=== PATIENT | male | born 1945 | race African-American/Black ===

== ENCOUNTER 2019-09-19 20:04 | Inpatient (IN) ==
[2019-09-19] MEDS ORDERED: PIPERACILLIN/TAZOBACTAM 3,375 MG in SODIUM CHLORIDE 0.9% 100 ML IV STA (20:30)
[2019-09-19] MEDS ORDERED: methylPREDNISolone SOD SUC 125 MG/2 ML VIAL IV STA (20:30)
[2019-09-19] MEDS ORDERED: ALBUTEROL NEB SOLN 5 MG/ML 20 ML/BOTTLE CONT NEB SCH (20:30)
[2019-09-19] MEDS ORDERED: ONDANSETRON 4 MG/2 ML VIAL IV STA (20:30)
[2019-09-19] MEDS ORDERED: VANCOMYCIN INJ 1,000 MG in SODIUM CHLORIDE 0.9% 250 ML IV STA (20:30)
[2019-09-19 21:38] LABS: Alanine Aminotransferase 39 U/L (16-61); Albumin 2.4 G/DL (3.4-5.0); Alkaline Phosphatase 80 U/L (45-117); Aspartate Amino Transferase 63 U/L (0-37); Bilirubin,Total < 0.39 MG/DL (0.2-1.0); Blood Urea Nitrogen 16 MG/DL (7-18); CKMB % 2.9 %; Calcium 7.6 MG/DL (8.5-10.1); Estimated Glom Filtration Rate 104 ML/MIN; Glucose 133 MG/DL (74-106); Osmolality,Calculated 277.7 MOS/KG (273-304); Total Protein 7.1 G/DL (6.4-8.3); Troponin I < 0.015 NG/ML (0.00-0.045)
[2019-09-19 21:50] LABS: Amorphous Crystals,Urine Occasional /HPF (Few); Apearance,Urine Slightly Hazy (Clear); Bacteria,Urine Occasional /HPF (Few); Bilirubin,Urine Negative (Negative); Blood, Urine Negative (Negative); Glucose,Urine (UA) Negative (Negative); Hyaline Casts,Urine 1 /LPF (0-3); Ketones,Urine Negative (Negative); Mucus,Urine Occasional /LPF (Occasional); Nitrite,Urine Negative (Negative); Protein,Urine Negative; Squamous Epithelial Cell,Urine Occasional /HPF (0-10); Urine Color Yellow (Yellow); Urine Specific Gravity 1.009 (1.001-1.035); Urine Urobilinogen < 2.0 EU/DL (0.2-1.0)
[2019-09-19] MEDS ORDERED: ACETAMINOPHEN 325 MG TABLET PO PRN (21:50)
[2019-09-19] MEDS ORDERED: ALBUTEROL 2.5 MG/3 ML NEB RESP TX PRN (21:50)
[2019-09-19] MEDS ORDERED: NICOTINE 21 MG/24 HR PATCH TRANSDERM PRN (21:50)
[2019-09-19] MEDS ORDERED: ONDANSETRON 4 MG/2 ML VIAL IV PRN (21:50)
[2019-09-19] MEDS ORDERED: DOCUSATE SODIUM 100 MG CAPSULE PO PRN (21:50)
[2019-09-19] MEDS ORDERED: diphenhydrAMINE CAP 25 MG CAPSULE PO PRN (21:50)
[2019-09-19] MEDS ORDERED: PROMETHAZINE 25 MG/1 ML VIAL IM PRN (21:50)
[2019-09-19] MEDS ORDERED: hydrALAZINE 20 MG/1 ML VIAL IV PRN (21:50)
[2019-09-19] MEDS ORDERED: ZALEPLON 5 MG CAPSULE PO PRN (21:50)
[2019-09-19 22:01] LABS: Basophils % 0.1 % (0.0-0.8); Eosinophils # 0.1 10*3/uL (0.0-0.87); Eosinophils % 1.1 % (0.00-10.9); Hematocrit 43.9 VOL% (42.0-52.0); Hemoglobin 14.1 GM/DL (14.0-18.0); Immature Granulocytes % 0.3 %; Immature Granulocytes Absolute 0.02 #; Lymphocytes # 2.9 10*3/uL (1.4-4.0); Lymphocytes % 39.6 % (21.2-54.2); Mean Corpuscular HGB Conc 32.1 GM/DL (32-36); Mean Corpuscular Volume 100.7 FL (87-102); Mean Platelet Volume 10.9 FL (9.6-12.0); Monocytes % 5.8 % (1.7-12.7); Neutrophils % 53.1 % (38.7-73.9); Platelet Count 108 T/CUMM (130-400); Red Blood Count 4.36 MC/CUMM (3.8-5.5); Red Cell Distribution Width 13.9 % (9.3-17.3); White Blood Count 7.3 T/CUMM (4-12)
[2019-09-19 22:10] LABS: INR 0.9; PT Patient Result 10.1 SECS (9.6-12.2)
[2019-09-19 23:15] LABS: Lymphocytes 45 % (20-55); Segmented Neutrophils 51 % (50-85)
[2019-09-19 23:16] LABS: Hypochromasia 1+; Platelet Estimate Normal; Reactive Lymphocytes Few
[2019-09-19 23:17] LABS: Total Cells Counted 100
[2019-09-20] MEDS: ALBUTEROL/IPRATROPIUM 3 ML NEB RESP TX SCH ×4 (01:20→19:01)
[2019-09-20] MEDS: AZITHROMYCIN INJ 500 MG in SODIUM CHLORIDE 0.9% 250 ML IV SCH (01:54)
[2019-09-20] MEDS: SODIUM CHLORIDE 0.9% 1,000 ML IV SCH ×3 (01:56→17:03)
[2019-09-20] MEDS: VANCOMYCIN INJ 1,250 MG in SODIUM CHLORIDE 0.9% 250 ML IV SCH ×2 (03:32→14:02)
[2019-09-20 06:23] LABS: Hematocrit 39.8 VOL% (42.0-52.0); Hemoglobin 13.1 GM/DL (14.0-18.0); Immature Granulocytes % 0.6 %; Immature Granulocytes Absolute 0.05 #; Lymphocytes # 1.1 10*3/uL (1.4-4.0); Lymphocytes % 13.9 % (21.2-54.2); Mean Corpuscular HGB Conc 32.9 GM/DL (32-36); Mean Corpuscular Volume 98.8 FL (87-102); Mean Platelet Volume 10.7 FL (9.6-12.0); Neutrophils % 82.5 % (38.7-73.9); Platelet Count 109 T/CUMM (130-400); Red Blood Count 4.03 MC/CUMM (3.8-5.5); White Blood Count 7.9 T/CUMM (4-12)
[2019-09-20 07:26] LABS: Albumin 2.2 G/DL (3.4-5.0); Bilirubin,Total 0.4 MG/DL (0.2-1.0); Calcium 8.2 MG/DL (8.5-10.1); Osmolality,Calculated 277.7 MOS/KG (273-304); Total Protein 7.3 G/DL (6.4-8.3)
[2019-09-20] MEDS ORDERED: carvediloL 12.5 MG TABLET PO SCH (08:00)
[2019-09-20] MEDS: FUROSEMIDE 40 MG TABLET PO SCH ×2 (08:25→20:53)
[2019-09-20] MEDS: FEXOFENADINE 60 MG TABLET PO SCH (08:25)
[2019-09-20] MEDS: levETIRAcetam 250 MG TABLET PO SCH ×2 (08:25→20:54)
[2019-09-20] MEDS: LEVOTHYROXINE 100 MCG TABLET PO SCH (08:25)
[2019-09-20] MEDS: PANTOPRAZOLE 40 MG TABLET PO SCH (08:26)
[2019-09-20] MEDS: TAMSULOSIN 0.4 MG CAPSULE PO SCH ×2 (08:26→20:53)
[2019-09-20] MEDS: POTASSIUM CHLORIDE 20 MEQ TABLET PO SCH (08:26)
[2019-09-20] MEDS: PIPERACILLIN/TAZOBACTAM 3,375 MG in SODIUM CHLORIDE 0.9% 100 ML IV SCH ×2 (08:26→16:00)
[2019-09-20] MEDS: FERROUS SULFATE 325 MG TABLET PO SCH (08:26)
[2019-09-20] MEDS ORDERED: amLODIPine 2.5 MG TABLET PO SCH (09:00)
[2019-09-20] MEDS: ATORVASTATIN 40 MG TABLET PO SCH (20:58)
[2019-09-21] MEDS: PIPERACILLIN/TAZOBACTAM 3,375 MG in SODIUM CHLORIDE 0.9% 100 ML IV SCH ×2 (00:18→08:10)
[2019-09-21] MEDS: ALBUTEROL/IPRATROPIUM 3 ML NEB RESP TX SCH ×4 (00:43→19:17)
[2019-09-21] MEDS: AZITHROMYCIN INJ 500 MG in SODIUM CHLORIDE 0.9% 250 ML IV SCH (04:26)
[2019-09-21] MEDS: VANCOMYCIN INJ 1,250 MG in SODIUM CHLORIDE 0.9% 250 ML IV SCH (05:42)
[2019-09-21] MEDS: LEVOTHYROXINE 100 MCG TABLET PO SCH (05:45)
[2019-09-21] MEDS: levETIRAcetam 250 MG TABLET PO SCH ×2 (08:10→21:43)
[2019-09-21] MEDS: POTASSIUM CHLORIDE 20 MEQ TABLET PO SCH (08:10)
[2019-09-21] MEDS: PANTOPRAZOLE 40 MG TABLET PO SCH (08:10)
[2019-09-21] MEDS: TAMSULOSIN 0.4 MG CAPSULE PO SCH ×2 (08:10→21:43)
[2019-09-21] MEDS: FEXOFENADINE 60 MG TABLET PO SCH (08:10)
[2019-09-21] MEDS: FERROUS SULFATE 325 MG TABLET PO SCH (08:10)
[2019-09-21] MEDS: FUROSEMIDE 40 MG TABLET PO SCH (08:10)
[2019-09-21] MEDS: FOLIC ACID 1 MG TABLET PO SCH (09:47)
[2019-09-21] MEDS: MAGNESIUM CHLORIDE 64 MG TABLET PO SCH (09:47)
[2019-09-21] MEDS: FUROSEMIDE 40 MG/4 ML VIAL IV SCH ×2 (09:48→16:24)
[2019-09-21] MEDS: DOCUSATE SODIUM 100 MG CAPSULE PO SCH ×2 (09:48→21:43)
[2019-09-21] MEDS: ISOSORBIDE MONONITRATE 30 MG TABLET PO SCH ×2 (09:48→21:43)
[2019-09-21] MEDS: ASPIRIN CHEW 81 MG TABLET PO SCH (09:51)
[2019-09-21] MEDS: POLYVINYL ALCOHOL 1.4% OPH SOLN 15 ML BOTTLE BOTH EYES SCH ×2 (13:52→21:43)
[2019-09-21] MEDS: FLUTICASONE 50 MCG NASAL SPRAY 16 GM BOTTLE BOTH NARES SCH ×2 (13:53→21:42)
[2019-09-21] MEDS: SODIUM CHLORIDE 0.9% 1,000 ML IV SCH (17:31)
[2019-09-21] MEDS: ATORVASTATIN 40 MG TABLET PO SCH (21:43)
[2019-09-22] MEDS: ALBUTEROL/IPRATROPIUM 3 ML NEB RESP TX SCH ×4 (01:35→19:04)
[2019-09-22 04:53] LABS: Basophils % 0.2 % (0.0-0.8); Hemoglobin 13.7 GM/DL (14.0-18.0); Immature Granulocytes Absolute 0.09 #; Lymphocytes # 2.1 10*3/uL (1.4-4.0); Lymphocytes % 22.8 % (21.2-54.2); Mean Corpuscular HGB Conc 32.6 GM/DL (32-36); Mean Corpuscular Volume 98.8 FL (87-102); Mean Platelet Volume 10.3 FL (9.6-12.0); Monocytes % 9.4 % (1.7-12.7); NRBC # 0.02 10*3/uL; Neutrophils % 66.6 % (38.7-73.9); Platelet Count 213 T/CUMM (130-400); Red Blood Count 4.25 MC/CUMM (3.8-5.5); Red Cell Distribution Width 14.6 % (9.3-17.3); White Blood Count 9.3 T/CUMM (4-12)
[2019-09-22 05:07] LABS: Albumin 2.4 G/DL (3.4-5.0); Calcium 8.2 MG/DL (8.5-10.1)
[2019-09-22] MEDS: LEVOTHYROXINE 100 MCG TABLET PO SCH (05:46)
[2019-09-22] MEDS: DOCUSATE SODIUM 100 MG CAPSULE PO SCH ×2 (09:27→20:51)
[2019-09-22] MEDS: POLYVINYL ALCOHOL 1.4% OPH SOLN 15 ML BOTTLE BOTH EYES SCH ×2 (09:27→20:51)
[2019-09-22] MEDS: ASPIRIN CHEW 81 MG TABLET PO SCH (09:27)
[2019-09-22] MEDS: FLUTICASONE 50 MCG NASAL SPRAY 16 GM BOTTLE BOTH NARES SCH ×2 (09:27→20:51)
[2019-09-22] MEDS: levETIRAcetam 250 MG TABLET PO SCH ×2 (09:27→20:50)
[2019-09-22] MEDS: FOLIC ACID 1 MG TABLET PO SCH (09:27)
[2019-09-22] MEDS: guaiFENesin/DM ER 600-30 MG TABLET PO PRN (09:27)
[2019-09-22] MEDS: PANTOPRAZOLE 40 MG TABLET PO SCH (09:27)
[2019-09-22] MEDS: ISOSORBIDE MONONITRATE 30 MG TABLET PO SCH ×2 (09:27→20:50)
[2019-09-22] MEDS: MAGNESIUM CHLORIDE 64 MG TABLET PO SCH (09:27)
[2019-09-22] MEDS: FERROUS SULFATE 325 MG TABLET PO SCH (09:27)
[2019-09-22] MEDS: POTASSIUM CHLORIDE 20 MEQ TABLET PO SCH (09:28)
[2019-09-22] MEDS: TAMSULOSIN 0.4 MG CAPSULE PO SCH ×2 (09:28→20:51)
[2019-09-22] MEDS: FUROSEMIDE 40 MG/4 ML VIAL IV SCH ×2 (09:28→16:58)
[2019-09-22] MEDS: FEXOFENADINE 60 MG TABLET PO SCH (09:30)
[2019-09-22] MEDS: ATORVASTATIN 40 MG TABLET PO SCH (20:51)
[2019-09-23] MEDS: ALBUTEROL/IPRATROPIUM 3 ML NEB RESP TX SCH ×4 (00:25→19:00)
[2019-09-23] MEDS: LEVOTHYROXINE 100 MCG TABLET PO SCH (05:50)
[2019-09-23] MEDS: FUROSEMIDE 40 MG/4 ML VIAL IV SCH ×2 (08:14→16:06)
[2019-09-23] MEDS: DOCUSATE SODIUM 100 MG CAPSULE PO SCH ×2 (08:14→21:51)
[2019-09-23] MEDS: FLUTICASONE 50 MCG NASAL SPRAY 16 GM BOTTLE BOTH NARES SCH ×2 (08:14→21:50)
[2019-09-23] MEDS: POLYVINYL ALCOHOL 1.4% OPH SOLN 15 ML BOTTLE BOTH EYES SCH ×2 (08:14→21:49)
[2019-09-23] MEDS: MAGNESIUM CHLORIDE 64 MG TABLET PO SCH (08:14)
[2019-09-23] MEDS: levETIRAcetam 250 MG TABLET PO SCH ×2 (08:15→21:50)
[2019-09-23] MEDS: ISOSORBIDE MONONITRATE 30 MG TABLET PO SCH ×2 (08:15→21:50)
[2019-09-23] MEDS: FOLIC ACID 1 MG TABLET PO SCH (08:15)
[2019-09-23] MEDS: TAMSULOSIN 0.4 MG CAPSULE PO SCH ×2 (08:15→21:49)
[2019-09-23] MEDS: PANTOPRAZOLE 40 MG TABLET PO SCH (08:15)
[2019-09-23] MEDS: SODIUM CHLORIDE 0.9% 1,000 ML IV SCH ×2 (08:15→17:07)
[2019-09-23] MEDS: POTASSIUM CHLORIDE 20 MEQ TABLET PO SCH (08:15)
[2019-09-23] MEDS: FERROUS SULFATE 325 MG TABLET PO SCH (08:15)
[2019-09-23] MEDS: FEXOFENADINE 60 MG TABLET PO SCH (08:15)
[2019-09-23] MEDS: ASPIRIN CHEW 81 MG TABLET PO SCH (08:15)
[2019-09-23] MEDS ORDERED: POTASSIUM PHOSPHATE 30 MMOL in SODIUM CHLORIDE 0.9% 250 ML IV ONE (10:00)
[2019-09-23] MEDS: ATORVASTATIN 40 MG TABLET PO SCH (21:50)
[2019-09-24] MEDS: ALBUTEROL/IPRATROPIUM 3 ML NEB RESP TX SCH ×4 (00:10→19:20)
[2019-09-24 05:17] LABS: Basophils % 0.2 % (0.0-0.8); Eosinophils # 0.2 10*3/uL (0.0-0.87); Eosinophils % 1.9 % (0.00-10.9); Hematocrit 41.2 VOL% (42.0-52.0); Hemoglobin 13.5 GM/DL (14.0-18.0); Immature Granulocytes % 1.4 %; Immature Granulocytes Absolute 0.15 #; Lymphocytes # 2.3 10*3/uL (1.4-4.0); Lymphocytes % 21.7 % (21.2-54.2); Mean Corpuscular HGB Conc 32.8 GM/DL (32-36); Monocytes % 10.4 % (1.7-12.7); Neutrophils % 64.4 % (38.7-73.9); Platelet Count 249 T/CUMM (130-400); Red Blood Count 4.16 MC/CUMM (3.8-5.5); Red Cell Distribution Width 14.8 % (9.3-17.3); White Blood Count 10.5 T/CUMM (4-12)
[2019-09-24] MEDS: LEVOTHYROXINE 100 MCG TABLET PO SCH (05:30)
[2019-09-24 05:42] LABS: Calcium 8.8 MG/DL (8.5-10.1); Osmolality,Calculated 279.5 MOS/KG (273-304)
[2019-09-24 06:08] LABS: Eosinophils 3 % (0-10); Hypochromasia Slight; Lymphocytes 20 % (20-55); Platelet Estimate Adequate; Segmented Neutrophils 63 % (50-85); Total Cells Counted 100
[2019-09-24] MEDS: ASPIRIN CHEW 81 MG TABLET PO SCH (09:09)
[2019-09-24] MEDS: TAMSULOSIN 0.4 MG CAPSULE PO SCH ×2 (09:09→22:18)
[2019-09-24] MEDS: ISOSORBIDE MONONITRATE 30 MG TABLET PO SCH ×2 (09:10→22:18)
[2019-09-24] MEDS: levETIRAcetam 250 MG TABLET PO SCH ×2 (09:10→22:18)
[2019-09-24] MEDS: DOCUSATE SODIUM 100 MG CAPSULE PO SCH ×2 (09:10→22:18)
[2019-09-24] MEDS: FERROUS SULFATE 325 MG TABLET PO SCH (09:10)
[2019-09-24] MEDS: FOLIC ACID 1 MG TABLET PO SCH (09:10)
[2019-09-24] MEDS: FEXOFENADINE 60 MG TABLET PO SCH (09:10)
[2019-09-24] MEDS: MAGNESIUM CHLORIDE 64 MG TABLET PO SCH (09:10)
[2019-09-24] MEDS: FUROSEMIDE 40 MG/4 ML VIAL IV SCH ×2 (09:10→16:09)
[2019-09-24] MEDS: POTASSIUM CHLORIDE 20 MEQ TABLET PO SCH (09:10)
[2019-09-24] MEDS: guaiFENesin/DM ER 600-30 MG TABLET PO PRN (09:10)
[2019-09-24] MEDS: POLYVINYL ALCOHOL 1.4% OPH SOLN 15 ML BOTTLE BOTH EYES SCH ×2 (09:10→22:18)
[2019-09-24] MEDS: PANTOPRAZOLE 40 MG TABLET PO SCH (09:10)
[2019-09-24] MEDS: FLUTICASONE 50 MCG NASAL SPRAY 16 GM BOTTLE BOTH NARES SCH ×2 (09:10→22:19)
[2019-09-24] MEDS ORDERED: POTASSIUM PHOSPHATE 30 MMOL in SODIUM CHLORIDE 0.9% 250 ML IV ONE (10:00)
[2019-09-24] MEDS: SODIUM CHLORIDE 0.9% 1,000 ML IV SCH (17:13)
[2019-09-24] MEDS: ATORVASTATIN 40 MG TABLET PO SCH (22:18)
[2019-09-25] MEDS: ALBUTEROL/IPRATROPIUM 3 ML NEB RESP TX SCH ×4 (00:42→19:03)
[2019-09-25 06:21] LABS: Basophils % 0.3 % (0.0-0.8); Eosinophils # 0.2 10*3/uL (0.0-0.87); Eosinophils % 2.3 % (0.00-10.9); Hematocrit 44.1 VOL% (42.0-52.0); Hemoglobin 14.4 GM/DL (14.0-18.0); Immature Granulocytes % 0.9 %; Immature Granulocytes Absolute 0.09 #; Lymphocytes # 2.3 10*3/uL (1.4-4.0); Lymphocytes % 23.6 % (21.2-54.2); Mean Corpuscular HGB Conc 32.7 GM/DL (32-36); Mean Platelet Volume 9.7 FL (9.6-12.0); Monocytes % 10.7 % (1.7-12.7); Neutrophils % 62.2 % (38.7-73.9); Platelet Count 314 T/CUMM (130-400); Red Blood Count 4.41 MC/CUMM (3.8-5.5); Red Cell Distribution Width 14.6 % (9.3-17.3); White Blood Count 9.7 T/CUMM (4-12)
[2019-09-25] MEDS: LEVOTHYROXINE 100 MCG TABLET PO SCH (06:21)
[2019-09-25 06:51] LABS: Calcium 9.1 MG/DL (8.5-10.1); Osmolality,Calculated 279.5 MOS/KG (273-304)
[2019-09-25] MEDS: DOCUSATE SODIUM 100 MG CAPSULE PO SCH ×2 (08:47→20:53)
[2019-09-25] MEDS: levETIRAcetam 250 MG TABLET PO SCH ×2 (08:47→20:53)
[2019-09-25] MEDS: TAMSULOSIN 0.4 MG CAPSULE PO SCH ×2 (08:47→20:53)
[2019-09-25] MEDS: PANTOPRAZOLE 40 MG TABLET PO SCH (08:47)
[2019-09-25] MEDS: ISOSORBIDE MONONITRATE 30 MG TABLET PO SCH ×2 (08:47→20:53)
[2019-09-25] MEDS: POTASSIUM CHLORIDE 20 MEQ TABLET PO SCH (08:47)
[2019-09-25] MEDS: FERROUS SULFATE 325 MG TABLET PO SCH (08:47)
[2019-09-25] MEDS: MAGNESIUM CHLORIDE 64 MG TABLET PO SCH (08:47)
[2019-09-25] MEDS: FEXOFENADINE 60 MG TABLET PO SCH (08:47)
[2019-09-25] MEDS: FOLIC ACID 1 MG TABLET PO SCH (08:47)
[2019-09-25] MEDS: ASPIRIN CHEW 81 MG TABLET PO SCH (08:47)
[2019-09-25] MEDS: FUROSEMIDE 40 MG/4 ML VIAL IV SCH ×2 (08:50→15:40)
[2019-09-25] MEDS: POLYVINYL ALCOHOL 1.4% OPH SOLN 15 ML BOTTLE BOTH EYES SCH ×2 (08:52→20:54)
[2019-09-25] MEDS: FLUTICASONE 50 MCG NASAL SPRAY 16 GM BOTTLE BOTH NARES SCH ×2 (08:53→20:54)
[2019-09-25] MEDS: ATORVASTATIN 40 MG TABLET PO SCH (20:53)
[2019-09-26] MEDS: ALBUTEROL/IPRATROPIUM 3 ML NEB RESP TX SCH ×4 (01:02→19:37)
[2019-09-26 05:25] LABS: Basophils % 0.2 % (0.0-0.8); Eosinophils # 0.2 10*3/uL (0.0-0.87); Eosinophils % 2.4 % (0.00-10.9); Hematocrit 45.6 VOL% (42.0-52.0); Hemoglobin 14.3 GM/DL (14.0-18.0); Immature Granulocytes Absolute 0.08 #; Lymphocytes # 2.6 10*3/uL (1.4-4.0); Lymphocytes % 31.5 % (21.2-54.2); Mean Corpuscular HGB Conc 31.4 GM/DL (32-36); Mean Corpuscular Volume 100.9 FL (87-102); Mean Platelet Volume 9.8 FL (9.6-12.0); Monocytes % 10.7 % (1.7-12.7); Neutrophils % 54.2 % (38.7-73.9); Platelet Count 352 T/CUMM (130-400); Red Blood Count 4.52 MC/CUMM (3.8-5.5); Red Cell Distribution Width 14.6 % (9.3-17.3); White Blood Count 8.3 T/CUMM (4-12)
[2019-09-26 05:55] LABS: Calcium 8.8 MG/DL (8.5-10.1); Osmolality,Calculated 283.3 MOS/KG (273-304)
[2019-09-26] MEDS: LEVOTHYROXINE 100 MCG TABLET PO SCH (06:04)
[2019-09-26] MEDS: FUROSEMIDE 40 MG/4 ML VIAL IV SCH ×2 (08:27→16:16)
[2019-09-26] MEDS: levETIRAcetam 250 MG TABLET PO SCH ×2 (08:28→20:07)
[2019-09-26] MEDS: FOLIC ACID 1 MG TABLET PO SCH (08:29)
[2019-09-26] MEDS: TAMSULOSIN 0.4 MG CAPSULE PO SCH ×2 (08:29→20:07)
[2019-09-26] MEDS: ISOSORBIDE MONONITRATE 30 MG TABLET PO SCH ×2 (08:29→20:07)
[2019-09-26] MEDS: FERROUS SULFATE 325 MG TABLET PO SCH (08:29)
[2019-09-26] MEDS: FEXOFENADINE 60 MG TABLET PO SCH (08:29)
[2019-09-26] MEDS: ASPIRIN CHEW 81 MG TABLET PO SCH (08:29)
[2019-09-26] MEDS: DOCUSATE SODIUM 100 MG CAPSULE PO SCH ×2 (08:29→20:07)
[2019-09-26] MEDS: PANTOPRAZOLE 40 MG TABLET PO SCH (08:29)
[2019-09-26] MEDS: POTASSIUM CHLORIDE 20 MEQ TABLET PO SCH (08:29)
[2019-09-26] MEDS: FLUTICASONE 50 MCG NASAL SPRAY 16 GM BOTTLE BOTH NARES SCH ×2 (08:32→20:07)
[2019-09-26] MEDS: POLYVINYL ALCOHOL 1.4% OPH SOLN 15 ML BOTTLE BOTH EYES SCH ×2 (08:32→20:07)
[2019-09-26] MEDS: MAGNESIUM CHLORIDE 64 MG TABLET PO SCH (08:34)
[2019-09-26] MEDS: ATORVASTATIN 40 MG TABLET PO SCH (20:07)
[2019-09-27] MEDS: ALBUTEROL/IPRATROPIUM 3 ML NEB RESP TX SCH ×4 (00:15→19:40)
[2019-09-27 04:27] LABS: Basophils % 0.4 % (0.0-0.8); Eosinophils # 0.2 10*3/uL (0.0-0.87); Hematocrit 44.4 VOL% (42.0-52.0); Immature Granulocytes % 0.8 %; Immature Granulocytes Absolute 0.09 #; Lymphocytes # 2.2 10*3/uL (1.4-4.0); Lymphocytes % 20.1 % (21.2-54.2); Mean Corpuscular HGB Conc 31.5 GM/DL (32-36); Mean Corpuscular Volume 101.4 FL (87-102); Mean Platelet Volume 9.8 FL (9.6-12.0); Monocytes % 11.8 % (1.7-12.7); Neutrophils % 64.9 % (38.7-73.9); Platelet Count 345 T/CUMM (130-400); Red Blood Count 4.38 MC/CUMM (3.8-5.5); Red Cell Distribution Width 14.6 % (9.3-17.3)
[2019-09-27 05:06] LABS: Calcium 8.9 MG/DL (8.5-10.1); Osmolality,Calculated 282.4 MOS/KG (273-304)
[2019-09-27] MEDS: LEVOTHYROXINE 100 MCG TABLET PO SCH (06:10)
[2019-09-27] MEDS: levETIRAcetam 250 MG TABLET PO SCH ×2 (09:30→21:10)
[2019-09-27] MEDS: guaiFENesin/DM ER 600-30 MG TABLET PO PRN (09:30)
[2019-09-27] MEDS: FERROUS SULFATE 325 MG TABLET PO SCH (09:30)
[2019-09-27] MEDS: FEXOFENADINE 60 MG TABLET PO SCH (09:30)
[2019-09-27] MEDS: POLYVINYL ALCOHOL 1.4% OPH SOLN 15 ML BOTTLE BOTH EYES SCH ×2 (09:30→21:09)
[2019-09-27] MEDS: ISOSORBIDE MONONITRATE 30 MG TABLET PO SCH ×2 (09:30→21:10)
[2019-09-27] MEDS: FLUTICASONE 50 MCG NASAL SPRAY 16 GM BOTTLE BOTH NARES SCH ×2 (09:30→21:10)
[2019-09-27] MEDS: PANTOPRAZOLE 40 MG TABLET PO SCH (09:30)
[2019-09-27] MEDS: POTASSIUM CHLORIDE 20 MEQ TABLET PO SCH (09:30)
[2019-09-27] MEDS: ASPIRIN CHEW 81 MG TABLET PO SCH (09:31)
[2019-09-27] MEDS: FUROSEMIDE 40 MG/4 ML VIAL IV SCH ×2 (09:31→16:58)
[2019-09-27] MEDS: FOLIC ACID 1 MG TABLET PO SCH (09:31)
[2019-09-27] MEDS: DOCUSATE SODIUM 100 MG CAPSULE PO SCH ×2 (09:31→21:08)
[2019-09-27] MEDS: MAGNESIUM CHLORIDE 64 MG TABLET PO SCH (09:34)
[2019-09-27] MEDS: TAMSULOSIN 0.4 MG CAPSULE PO SCH ×2 (09:34→21:10)
[2019-09-27] MEDS: MEROPENEM 500 MG in SODIUM CHLORIDE 0.9% 100 ML IV SCH (19:42)
[2019-09-27] MEDS: ATORVASTATIN 40 MG TABLET PO SCH (21:10)
[2019-09-27] MEDS: VANCOMYCIN INJ 1,000 MG in SODIUM CHLORIDE 0.9% 250 ML IV SCH (21:22)
[2019-09-28] MEDS: MEROPENEM 500 MG in SODIUM CHLORIDE 0.9% 100 ML IV SCH ×4 (01:40→18:17)
[2019-09-28 02:59] LABS: Apearance,Urine CLEAR (Clear); Bacteria,Urine Occasional /HPF (Few); Bilirubin,Urine Negative (Negative); Blood, Urine Small mg/dL (Negative); Glucose,Urine (UA) Negative (Negative); Hyaline Casts,Urine 32 /LPF (0-3); Ketones,Urine Negative (Negative); Mucus,Urine Occasional /LPF (Occasional); Nitrite,Urine Negative (Negative); Protein,Urine Negative; RBC,Urine 2 /HPF (0-4); Squamous Epithelial Cell,Urine Occasional /HPF (0-10); Urine Color Yellow (Yellow); Urine Specific Gravity 1.009 (1.001-1.035); Urine Urobilinogen < 2.0 EU/DL (0.2-1.0); WBC,Urine 2 /HPF (0-6)
[2019-09-28 05:32] LABS: Osmolality,Calculated 286.1 MOS/KG (273-304)
[2019-09-28] MEDS: LEVOTHYROXINE 100 MCG TABLET PO SCH (06:08)
[2019-09-28] MEDS: FOLIC ACID 1 MG TABLET PO SCH (08:29)
[2019-09-28] MEDS: DOCUSATE SODIUM 100 MG CAPSULE PO SCH ×2 (08:29→21:25)
[2019-09-28] MEDS: MAGNESIUM CHLORIDE 64 MG TABLET PO SCH (08:29)
[2019-09-28] MEDS: FEXOFENADINE 60 MG TABLET PO SCH (08:29)
[2019-09-28] MEDS: ASPIRIN CHEW 81 MG TABLET PO SCH (08:30)
[2019-09-28] MEDS: PANTOPRAZOLE 40 MG TABLET PO SCH (08:30)
[2019-09-28] MEDS: FLUTICASONE 50 MCG NASAL SPRAY 16 GM BOTTLE BOTH NARES SCH ×2 (08:30→21:25)
[2019-09-28] MEDS: TAMSULOSIN 0.4 MG CAPSULE PO SCH ×2 (08:30→21:25)
[2019-09-28] MEDS: FERROUS SULFATE 325 MG TABLET PO SCH (08:30)
[2019-09-28] MEDS: ISOSORBIDE MONONITRATE 30 MG TABLET PO SCH ×2 (08:30→21:25)
[2019-09-28] MEDS: FUROSEMIDE 40 MG/4 ML VIAL IV SCH ×2 (08:31→17:45)
[2019-09-28] MEDS: POTASSIUM CHLORIDE 20 MEQ TABLET PO SCH (08:31)
[2019-09-28] MEDS: levETIRAcetam 250 MG TABLET PO SCH ×2 (08:38→21:25)
[2019-09-28] MEDS: POLYVINYL ALCOHOL 1.4% OPH SOLN 15 ML BOTTLE BOTH EYES SCH ×2 (10:21→21:25)
[2019-09-28] MEDS: VANCOMYCIN INJ 1,000 MG in SODIUM CHLORIDE 0.9% 250 ML IV SCH (17:45)
[2019-09-28] MEDS: ATORVASTATIN 40 MG TABLET PO SCH (21:25)
[2019-09-29] MEDS: MEROPENEM 500 MG in SODIUM CHLORIDE 0.9% 100 ML IV SCH ×4 (01:20→20:48)
[2019-09-29 02:54] LABS: Basophils # 0.1 10*3/uL (0.0-0.2); Basophils % 0.5 % (0.0-0.8); Eosinophils # 0.3 10*3/uL (0.0-0.87); Eosinophils % 2.6 % (0.00-10.9); Hematocrit 42.1 VOL% (42.0-52.0); Hemoglobin 13.1 GM/DL (14.0-18.0); Immature Granulocytes % 0.4 %; Immature Granulocytes Absolute 0.04 #; Lymphocytes # 2.7 10*3/uL (1.4-4.0); Lymphocytes % 25.6 % (21.2-54.2); Mean Corpuscular HGB Conc 31.1 GM/DL (32-36); Mean Corpuscular Volume 103.4 FL (87-102); Monocytes % 10.3 % (1.7-12.7); Neutrophils % 60.6 % (38.7-73.9); Platelet Count 320 T/CUMM (130-400); Red Blood Count 4.07 MC/CUMM (3.8-5.5); Red Cell Distribution Width 14.3 % (9.3-17.3); White Blood Count 10.5 T/CUMM (4-12)
[2019-09-29 03:12] LABS: Calcium 8.7 MG/DL (8.5-10.1); Osmolality,Calculated 279.5 MOS/KG (273-304)
[2019-09-29] MEDS: LEVOTHYROXINE 100 MCG TABLET PO SCH (05:50)
[2019-09-29] MEDS: FUROSEMIDE 40 MG/4 ML VIAL IV SCH ×2 (08:29→16:20)
[2019-09-29] MEDS: ISOSORBIDE MONONITRATE 30 MG TABLET PO SCH ×2 (08:29→20:48)
[2019-09-29] MEDS: MAGNESIUM CHLORIDE 64 MG TABLET PO SCH (08:29)
[2019-09-29] MEDS: DOCUSATE SODIUM 100 MG CAPSULE PO SCH ×2 (08:30→20:48)
[2019-09-29] MEDS: POLYVINYL ALCOHOL 1.4% OPH SOLN 15 ML BOTTLE BOTH EYES SCH ×2 (08:30→20:49)
[2019-09-29] MEDS: ASPIRIN CHEW 81 MG TABLET PO SCH (08:30)
[2019-09-29] MEDS: TAMSULOSIN 0.4 MG CAPSULE PO SCH ×2 (08:30→20:48)
[2019-09-29] MEDS: FERROUS SULFATE 325 MG TABLET PO SCH (08:30)
[2019-09-29] MEDS: FLUTICASONE 50 MCG NASAL SPRAY 16 GM BOTTLE BOTH NARES SCH ×2 (08:30→20:48)
[2019-09-29] MEDS: PANTOPRAZOLE 40 MG TABLET PO SCH (08:30)
[2019-09-29] MEDS: levETIRAcetam 250 MG TABLET PO SCH ×2 (08:30→20:48)
[2019-09-29] MEDS: FOLIC ACID 1 MG TABLET PO SCH (08:30)
[2019-09-29] MEDS: POTASSIUM CHLORIDE 20 MEQ TABLET PO SCH (08:30)
[2019-09-29] MEDS: FEXOFENADINE 60 MG TABLET PO SCH (08:32)
[2019-09-29] MEDS: VANCOMYCIN INJ 1,000 MG in SODIUM CHLORIDE 0.9% 250 ML IV SCH (08:35)
[2019-09-29] MEDS: ATORVASTATIN 40 MG TABLET PO SCH (20:48)
[2019-09-30] MEDS: VANCOMYCIN INJ 1,000 MG in SODIUM CHLORIDE 0.9% 250 ML IV SCH ×2 (01:45→23:20)
[2019-09-30] MEDS: MEROPENEM 500 MG in SODIUM CHLORIDE 0.9% 100 ML IV SCH ×4 (05:03→21:46)
[2019-09-30] MEDS: LEVOTHYROXINE 100 MCG TABLET PO SCH (06:10)
[2019-09-30] MEDS ORDERED: FUROSEMIDE 40 MG/4 ML VIAL IV ONE (09:00)
[2019-09-30 12:12] LABS: Basophils # 0.1 10*3/uL (0.0-0.2); Basophils % 0.6 % (0.0-0.8); Eosinophils # 0.2 10*3/uL (0.0-0.87); Eosinophils % 1.6 % (0.00-10.9); Hematocrit 44.2 VOL% (42.0-52.0); Hemoglobin 13.7 GM/DL (14.0-18.0); Immature Granulocytes % 0.3 %; Immature Granulocytes Absolute 0.03 #; Lymphocytes % 21.5 % (21.2-54.2); Monocytes % 9.6 % (1.7-12.7); Neutrophils % 66.4 % (38.7-73.9); Platelet Count 365 T/CUMM (130-400); Red Blood Count 4.29 MC/CUMM (3.8-5.5); Red Cell Distribution Width 13.9 % (9.3-17.3); White Blood Count 9.5 T/CUMM (4-12)
[2019-09-30] MEDS: TAMSULOSIN 0.4 MG CAPSULE PO SCH ×2 (12:28→20:50)
[2019-09-30] MEDS: DOCUSATE SODIUM 100 MG CAPSULE PO SCH ×2 (12:28→20:50)
[2019-09-30] MEDS: FERROUS SULFATE 325 MG TABLET PO SCH (12:28)
[2019-09-30] MEDS: FUROSEMIDE 40 MG/4 ML VIAL IV SCH ×2 (12:28→17:42)
[2019-09-30] MEDS: FEXOFENADINE 60 MG TABLET PO SCH (12:28)
[2019-09-30] MEDS: POLYVINYL ALCOHOL 1.4% OPH SOLN 15 ML BOTTLE BOTH EYES SCH ×2 (12:28→20:50)
[2019-09-30] MEDS: ASPIRIN CHEW 81 MG TABLET PO SCH (12:28)
[2019-09-30] MEDS: FOLIC ACID 1 MG TABLET PO SCH (12:29)
[2019-09-30] MEDS: POTASSIUM CHLORIDE 20 MEQ TABLET PO SCH (12:29)
[2019-09-30] MEDS: FLUTICASONE 50 MCG NASAL SPRAY 16 GM BOTTLE BOTH NARES SCH ×2 (12:29→20:50)
[2019-09-30] MEDS: ISOSORBIDE MONONITRATE 30 MG TABLET PO SCH ×2 (12:29→20:50)
[2019-09-30] MEDS: PANTOPRAZOLE 40 MG TABLET PO SCH (12:30)
[2019-09-30] MEDS: MAGNESIUM CHLORIDE 64 MG TABLET PO SCH (12:30)
[2019-09-30 12:36] LABS: Calcium 8.8 MG/DL (8.5-10.1); Osmolality,Calculated 283.1 MOS/KG (273-304)
[2019-09-30] MEDS: levETIRAcetam 250 MG TABLET PO SCH ×2 (13:05→20:50)
[2019-09-30] MEDS: ATORVASTATIN 40 MG TABLET PO SCH (20:50)
[2019-09-30] MEDS ORDERED: VANCOMYCIN INJ 1,250 MG in SODIUM CHLORIDE 0.9% 250 ML IV SCH (23:00)
[2019-10-01] MEDS: MEROPENEM 500 MG in SODIUM CHLORIDE 0.9% 100 ML IV SCH ×2 (02:38→09:30)
[2019-10-01] MEDS: LEVOTHYROXINE 100 MCG TABLET PO SCH (05:38)
[2019-10-01 06:06] LABS: Basophils # 0.1 10*3/uL (0.0-0.2); Basophils % 0.6 % (0.0-0.8); Eosinophils # 0.2 10*3/uL (0.0-0.87); Eosinophils % 1.9 % (0.00-10.9); Hematocrit 42.9 VOL% (42.0-52.0); Hemoglobin 13.5 GM/DL (14.0-18.0); Immature Granulocytes % 0.3 %; Immature Granulocytes Absolute 0.03 #; Lymphocytes # 2.1 10*3/uL (1.4-4.0); Mean Corpuscular HGB Conc 31.5 GM/DL (32-36); Mean Corpuscular Volume 103.1 FL (87-102); Mean Platelet Volume 11.7 FL (9.6-12.0); Monocytes % 9.5 % (1.7-12.7); Neutrophils % 65.7 % (38.7-73.9); Platelet Count 274 T/CUMM (130-400); Red Blood Count 4.16 MC/CUMM (3.8-5.5); Red Cell Distribution Width 13.9 % (9.3-17.3); White Blood Count 9.7 T/CUMM (4-12)
[2019-10-01] MEDS ORDERED: METOPROLOL TARTRATE 25 MG TABLET PO ONE (06:07)
[2019-10-01] MEDS ORDERED: FUROSEMIDE 40 MG/4 ML VIAL IV ONE (08:30)
[2019-10-01] MEDS: ASPIRIN CHEW 81 MG TABLET PO SCH (09:00)
[2019-10-01] MEDS: ISOSORBIDE MONONITRATE 30 MG TABLET PO SCH ×2 (09:00→21:31)
[2019-10-01] MEDS: FLUTICASONE 50 MCG NASAL SPRAY 16 GM BOTTLE BOTH NARES SCH ×2 (09:00→21:31)
[2019-10-01] MEDS: levETIRAcetam 250 MG TABLET PO SCH ×2 (09:00→21:32)
[2019-10-01] MEDS: DOCUSATE SODIUM 100 MG CAPSULE PO SCH ×2 (09:00→21:31)
[2019-10-01] MEDS: FUROSEMIDE 40 MG/4 ML VIAL IV SCH ×2 (09:00→17:51)
[2019-10-01] MEDS: MAGNESIUM CHLORIDE 64 MG TABLET PO SCH (09:00)
[2019-10-01] MEDS: FEXOFENADINE 60 MG TABLET PO SCH (09:00)
[2019-10-01] MEDS: TAMSULOSIN 0.4 MG CAPSULE PO SCH ×2 (09:00→21:31)
[2019-10-01] MEDS: POLYVINYL ALCOHOL 1.4% OPH SOLN 15 ML BOTTLE BOTH EYES SCH ×2 (09:00→21:31)
[2019-10-01] MEDS: FERROUS SULFATE 325 MG TABLET PO SCH (09:00)
[2019-10-01] MEDS: FOLIC ACID 1 MG TABLET PO SCH (09:00)
[2019-10-01] MEDS: POTASSIUM CHLORIDE 20 MEQ TABLET PO SCH (09:00)
[2019-10-01] MEDS: PANTOPRAZOLE 40 MG TABLET PO SCH (09:00)
[2019-10-01] MEDS ORDERED: ZINC SULFATE 220 MG CAPSULE PO SCH (16:00)
[2019-10-01] MEDS: HYDROXYCHLOROQUINE 200 MG TABLET PO SCH (18:00)
[2019-10-01] MEDS: ATORVASTATIN 40 MG TABLET PO SCH (21:32)
[2019-10-02 05:26] LABS: Basophils # 0.1 10*3/uL (0.0-0.2); Basophils % 0.6 % (0.0-0.8); Eosinophils # 0.2 10*3/uL (0.0-0.87); Eosinophils % 1.8 % (0.00-10.9); Hematocrit 42.3 VOL% (42.0-52.0); Hemoglobin 13.6 GM/DL (14.0-18.0); Immature Granulocytes % 0.3 %; Immature Granulocytes Absolute 0.03 #; Lymphocytes % 28.8 % (21.2-54.2); Mean Corpuscular HGB Conc 32.2 GM/DL (32-36); Mean Corpuscular Volume 100.5 FL (87-102); Mean Platelet Volume 10.4 FL (9.6-12.0); Neutrophils % 59.5 % (38.7-73.9); Platelet Count 403 T/CUMM (130-400); Red Blood Count 4.21 MC/CUMM (3.8-5.5); Red Cell Distribution Width 13.7 % (9.3-17.3); White Blood Count 10.4 T/CUMM (4-12)
[2019-10-02 05:39] LABS: Albumin 2.4 G/DL (3.4-5.0); Bilirubin,Total 0.4 MG/DL (0.2-1.0); Calcium 8.9 MG/DL (8.5-10.1); Osmolality,Calculated 280.3 MOS/KG (273-304); Total Protein 8.9 G/DL (6.4-8.3)
[2019-10-02] MEDS: LEVOTHYROXINE 100 MCG TABLET PO SCH (06:07)
[2019-10-02] MEDS: HYDROXYCHLOROQUINE 200 MG TABLET PO SCH (06:07)
[2019-10-02] MEDS: FUROSEMIDE 40 MG/4 ML VIAL IV SCH (09:27)
[2019-10-02] MEDS: ASPIRIN CHEW 81 MG TABLET PO SCH (09:28)
[2019-10-02] MEDS: FERROUS SULFATE 325 MG TABLET PO SCH (09:28)
[2019-10-02] MEDS: MAGNESIUM CHLORIDE 64 MG TABLET PO SCH (09:28)
[2019-10-02] MEDS: TAMSULOSIN 0.4 MG CAPSULE PO SCH (09:28)
[2019-10-02] MEDS: POTASSIUM CHLORIDE 20 MEQ TABLET PO SCH (09:28)
[2019-10-02] MEDS: PANTOPRAZOLE 40 MG TABLET PO SCH (09:28)
[2019-10-02] MEDS: DOCUSATE SODIUM 100 MG CAPSULE PO SCH (09:28)
[2019-10-02] MEDS: levETIRAcetam 250 MG TABLET PO SCH (09:28)
[2019-10-02] MEDS: FEXOFENADINE 60 MG TABLET PO SCH (09:28)
[2019-10-02] MEDS: ISOSORBIDE MONONITRATE 30 MG TABLET PO SCH (09:29)
[2019-10-02] MEDS: POLYVINYL ALCOHOL 1.4% OPH SOLN 15 ML BOTTLE BOTH EYES SCH (09:43)
[2019-10-02] MEDS: FLUTICASONE 50 MCG NASAL SPRAY 16 GM BOTTLE BOTH NARES SCH (09:43)
[2019-10-02] MEDS: FOLIC ACID 1 MG TABLET PO SCH (09:43)
[2019-10-02 13:32] VITALS: BP 93/70
[2019-10-02] MEDS ORDERED: HYDROXYCHLOROQUINE 200 MG TABLET PO SCH (18:00)
== END 2019-10-02 12:57 | DRG 177 ==
LOC: EDBD → EDUNIT# → N.ED 20:04 → N.EDINP 21:50 → SUATTDRO 21:50 → N.2E 22:06 → N.5E 09-20 00:11 → N.2E 09-27 20:52 → N.2W 09-30 08:45
PROVIDERS: ADMIT Internal Medicine Geriatric Medicine; ATTEND Internal Medicine

== ENCOUNTER 2020-05-01 19:48 | Observation (INO) ==
[2020-05-01] MEDS ORDERED: ALBUTEROL/IPRATROPIUM 3 ML NEB RESP TX STA (20:11)
[2020-05-01] MEDS ORDERED: LEVOFLOXACIN INJ 750 MG in PREMIX 1 EACH IV STA (20:15)
[2020-05-01 20:36] LABS: Basophils % 0.4 % (0.0-0.8); Eosinophils # 0.2 10*3/uL (0.0-0.87); Eosinophils % 1.9 % (0.00-10.9); Hematocrit 40.2 VOL% (42.0-52.0); Hemoglobin 13.2 GM/DL (14.0-18.0); Immature Granulocytes % 0.2 %; Immature Granulocytes Absolute 0.02 #; Lymphocytes # 4.1 10*3/uL (1.4-4.0); Lymphocytes % 43.3 % (21.2-54.2); Mean Corpuscular HGB Conc 32.8 GM/DL (32-36); Mean Corpuscular Volume 100.8 FL (87-102); Mean Platelet Volume 10.3 FL (9.6-12.0); Neutrophils % 46.2 % (38.7-73.9); Platelet Count 194 T/CUMM (130-400); Red Blood Count 3.99 MC/CUMM (3.8-5.5); Red Cell Distribution Width 12.9 % (9.3-17.3); White Blood Count 9.5 T/CUMM (4-12)
[2020-05-01 20:55] LABS: Alanine Aminotransferase 17 U/L (16-61); Albumin 2.9 G/DL (3.4-5.0); Alkaline Phosphatase 85 U/L (45-117); Aspartate Amino Transferase 16 U/L (0-37); Blood Urea Nitrogen 10 MG/DL (7-18); Calcium 8.7 MG/DL (8.5-10.1); Estimated Glom Filtration Rate 96 ML/MIN; Glucose 153 MG/DL (74-106); Osmolality,Calculated 274.8 MOS/KG (273-304); Total Protein 8.2 G/DL (6.4-8.3)
[2020-05-01] MEDS ORDERED: LACTATED RINGERS 1,000 ML IV ONE (20:58)
[2020-05-01] MEDS ORDERED: diphenhydrAMINE CAP 25 MG CAPSULE PO PRN (22:41)
[2020-05-01] MEDS ORDERED: ZALEPLON 5 MG CAPSULE PO PRN (22:41)
[2020-05-01] MEDS ORDERED: NICOTINE 21 MG/24 HR PATCH TRANSDERM PRN (22:41)
[2020-05-01] MEDS ORDERED: ONDANSETRON 4 MG/2 ML VIAL IV PRN (22:41)
[2020-05-01] MEDS ORDERED: hydrALAZINE 20 MG/1 ML VIAL IV PRN (22:41)
[2020-05-01] MEDS ORDERED: MORPHINE 4 MG/1 ML VIAL IV PRN (22:41)
[2020-05-01] MEDS ORDERED: GLUCAGON 1 MG VIAL IM PRN (22:41)
[2020-05-01] MEDS ORDERED: DEXTROSE 50% 25 GM/50 ML VIAL IV PRN (22:41)
[2020-05-01] MEDS ORDERED: guaiFENesin/DM ER 600-30 MG TABLET PO PRN (22:41)
[2020-05-01] MEDS ORDERED: ACETAMINOPHEN 325 MG TABLET PO PRN (22:41)
[2020-05-01 23:01] LABS: Bilirubin,Urine Negative (Negative); Blood, Urine Negative (Negative); Glucose,Urine (UA) Negative (Negative); Ketones,Urine Negative (Negative); Nitrite,Urine Negative (Negative); Protein,Urine Negative; RBC,Urine 1 /HPF (0-4); Squamous Epithelial Cell,Urine Occasional /HPF (0-10); Urine Appearance CLEAR (Clear); Urine Color Yellow (Yellow); Urine Urobilinogen < 2.0 EU/DL (0.2-1.0); WBC,Urine 6 /HPF (0-6)
[2020-05-02] MEDS: ALBUTEROL/IPRATROPIUM 3 ML NEB RESP TX SCH ×2 (01:54→08:00)
[2020-05-02] MEDS: DEXTROSE 5% NACL 0.9% 1,000 ML IV SCH ×2 (03:32→12:50)
[2020-05-02 05:21] LABS: Basophils % 0.4 % (0.0-0.8); Eosinophils # 0.2 10*3/uL (0.0-0.87); Eosinophils % 2.1 % (0.00-10.9); Hematocrit 41.3 VOL% (42.0-52.0); Hemoglobin 13.6 GM/DL (14.0-18.0); Immature Granulocytes % 0.2 %; Immature Granulocytes Absolute 0.02 #; Lymphocytes # 3.9 10*3/uL (1.4-4.0); Lymphocytes % 41.6 % (21.2-54.2); Mean Corpuscular HGB Conc 32.9 GM/DL (32-36); Monocytes % 8.4 % (1.7-12.7); Neutrophils % 47.3 % (38.7-73.9); Platelet Count 215 T/CUMM (130-400); Red Blood Count 4.17 MC/CUMM (3.8-5.5); Red Cell Distribution Width 12.7 % (9.3-17.3); White Blood Count 9.3 T/CUMM (4-12)
[2020-05-02 05:48] LABS: Calcium 9.1 MG/DL (8.5-10.1); Osmolality,Calculated 277.4 MOS/KG (273-304)
[2020-05-02] MEDS ORDERED: carvediloL 12.5 MG TABLET PO SCH (08:00)
[2020-05-02] MEDS ORDERED: FUROSEMIDE 40 MG/4 ML VIAL IV ONE (08:50)
[2020-05-02] MEDS ORDERED: PANTOPRAZOLE 40 MG TABLET PO SCH (09:00)
[2020-05-02] MEDS ORDERED: DOCUSATE SODIUM 100 MG CAPSULE PO SCH (09:00)
[2020-05-02] MEDS ORDERED: ASPIRIN CHEW 81 MG TABLET PO SCH (09:00)
[2020-05-02] MEDS ORDERED: ISOSORBIDE MONONITRATE 30 MG TABLET PO SCH (09:00)
[2020-05-02] MEDS ORDERED: TAMSULOSIN 0.4 MG CAPSULE PO SCH (09:00)
[2020-05-02] MEDS ORDERED: ENOXAPARIN 40 MG/0.4 ML SYRINGE SUBCUT SCH (09:00)
[2020-05-02] MEDS ORDERED: FUROSEMIDE 40 MG TABLET PO SCH (09:00)
[2020-05-02] MEDS ORDERED: ALLEGRA PO SCH (09:00)
[2020-05-02] MEDS ORDERED: ZINC SULFATE 220 MG CAPSULE PO SCH (09:00)
[2020-05-02] MEDS ORDERED: FERROUS SULFATE 325 MG TABLET PO SCH (09:00)
[2020-05-02] MEDS ORDERED: POTASSIUM CHLORIDE 20 MEQ TABLET PO SCH (09:00)
[2020-05-02] MEDS ORDERED: levETIRAcetam 250 MG TABLET PO SCH (09:00)
[2020-05-02 12:25] VITALS: BP 127/95
[2020-05-02] MEDS ORDERED: ATORVASTATIN 40 MG TABLET PO SCH (21:00)
[2020-05-02] MEDS ORDERED: LEVOFLOXACIN INJ 750 MG in PREMIX 1 EACH IV SCH (21:00)
== END 2020-05-02 15:25 ==
LOC: EDBD → EDUNIT# → N.EDINP 19:48 → N.ED 19:48 → SUATTDRO 22:41 → N.3E 05-02 00:48
PROVIDERS: ADMIT Internal Medicine; ATTEND Internal Medicine